=== PATIENT | male | born 1995 | race Caucasian/White ===

== ENCOUNTER 2018-01-07 03:38 | Emergency (ER) | payer OTHER ==
[2018-01-07] MEDS ORDERED: KETOROLAC TROMETHAMINE 60 MG/2 ML SDV IM ONE (04:58)
[2018-01-07 05:16] LABS: APPEARANCE,URINE CLEAR; BILIRUBIN,URINE NEGATIVE (NEGATIVE); COLOR,URINE COLORLESS; GLUCOSE, URINE NEGATIVE (NEGATIVE); KETONES,URINE NEGATIVE (NEGATIVE); LEUKOCYTE ESTERASE,URINE NEGATIVE (NEGATIVE); NITRITE,URINE NEGATIVE (NEGATIVE); PROTEIN,URINE NEGATIVE (NEGATIVE); URINE SPECIFIC GRAVITY 1.003; UROBILINOGEN,URINE NEGATIVE mg/dL (<2.0)
[2018-01-07] MEDS ORDERED: METHOCARBAMOL 750 MG TABLET PO ONE (06:15)
--- NOTE | 2018-01-07 06:16 | ER Document Report ---
ED General - General Chief Complaint: Possible Kidney Stone Stated Complaint: FLANK PAIN Time Seen by Provider: 01/07/18 04:07 Mode of Arrival: Ambulatory Information source: Patient Notes: Patient is a 22-year-old male [employer] who presents with chief complaint of left flank pain. Patient reports this pain has been going on for approximately 2 months. Also reports some mild dysuria over the last few days. Patient denies any fever, nausea, vomiting or diarrhea. Patient does report that he feels as though he has not been keeping hydrated lately. Patient reports that he does have a history of a previous back injury that affected the left side of his back. Patient reports it feels like this is "acting up" but states he does not recall reinjuring it. Patient reports he is tried taking ibuprofen with minimal relief. Last dose was at 9:30 PM. Patient admits to having a few beers prior to arrival tonight. Patient denies any past medical history, surgical history and does not take any daily medications. TRAVEL OUTSIDE OF THE [place] IN LAST 30 DAYS: No - Related Data Allergies/Adverse Reactions: No Known Allergies Allergy (Verified 01/07/18 03:40) Past Medical History - Social History Smoking Status: Current Every Day Smoker Family History: Reviewed & Not Pertinent Patient has suicidal ideation: No Patient has homicidal ideation: No - Medical History Medical History: Negative Renal/ Medical History: Denies: Hx Peritoneal Dialysis Past Surgical History: Reports: Hx Oral Surgery - Immunizations Immunizations up to date: Yes Hx Diphtheria, Pertussis, Tetanus Vaccination: Yes Review of Systems - Review of Systems Genitourinary: Dysuria Musculoskeletal: Back pain -: Yes All other systems reviewed and negative Physical Exam - Vital signs Vitals: Temp Pulse Resp BP Pulse Ox 97.7 F 99 18 150/91 H 97 01/07/18 03:43 01/07/18 03:43 01/07/18 03:43 01/07/18 03:43 01/07/18 03:43 - Notes Notes: PHYSICAL EXAMINATION: GENERAL: Well-appearing, well-nourished and in no acute distress. HEAD: Atraumatic, normocephalic. EYES: Pupils equal round and reactive to light, extraocular movements intact, sclera anicteric, conjunctiva are normal. ENT: Nares patent, oropharynx clear without exudates. Moist mucous membranes. NECK: Normal range of motion, supple without lymphadenopathy LUNGS: Breath sounds clear to auscultation bilaterally and equal. No wheezes rales or rhonchi. HEART: Regular rate and rhythm without murmurs ABDOMEN: Soft, nontender, nondistended abdomen. No guarding, no rebound. No masses appreciated. Musculoskeletal: Normal range of motion, no pitting or edema. No cyanosis. NEUROLOGICAL: Cranial nerves grossly intact. Normal speech, normal gait. Normal sensory, motor exams PSYCH: Normal mood, normal affect. SKIN: Warm, Dry, normal turgor, no rashes or lesions noted. Course - Re-evaluation Re-evalutation: Patient is an otherwise healthy 22-year-old male who appears well and is not toxic in appearance. Vital signs are within normal limits. Physical examination is consistent with musculoskeletal strain. Patient will be given IM Toradol. Urinalysis will be performed to rule out urinary tract infection as well as chlamydia and gonorrhea due to patient's complaint of mild dysuria. Discussed this with the patient who adamantly reports that he does not have any sexually transmitted infections. He declines prophylactic treatment. He would like me to call him if there are any abnormalities with his test. - Vital Signs Vital signs: Temp Pulse Resp BP Pulse Ox 97.7 F 99 18 150/91 H 97 01/07/18 03:43 01/07/18 03:43 01/07/18 03:43 01/07/18 03:43 01/07/18 03:43 Discharge - Discharge Clinical Impression: Low back strain Qualifiers: Encounter type: initial encounter Qualified Code(s): S39.012A - Strain of muscle, fascia and tendon of lower back, initial encounter Condition: Stable Disposition: HOME, SELF-CARE Additional Instructions: Muscle Strain You have strained a muscle -- torn the fibers within the muscle. This often occurs with strenuous exertion, or during an injury that suddenly stretches the muscle. The seriousness of a strain varies. Some strains heal within days, others cause problems for months. X-rays cannot show a muscle strain. X-rays are taken only if symptoms suggest that a fracture could be present. The usual treatment of a muscle strain is rest and ice packs. Sometimes, a sling, splint, or crutches may be necessary to rest the muscle. The muscle can be used again once pain subsides. Severe strains require a special exercise and stretching program to prevent permanent stiffness and disability. Your doctor will advise you if this will be necessary. Call the doctor immediately if pain or swelling becomes severe, or if numbness or discoloration develop. Muscle Relaxers Muscle relaxing medications are usually prescribed for acute muscle spasm or injury to the neck and back. They are often combined with antiinflammatory pain medication for increased relief. You may stop the muscle relaxer when the pain and stiffness have improved. Start the medication again if spasms recur. Muscle relaxers may cause drowsiness, especially with the first dose. Do not operate machinery or drive while under the effects of the medication. Most muscle relaxers last up to 24 hours. Do not combine the medication with alcohol. Your pain is likely due to a musculoskeletal strain. Please take ibuprofen 600 mg every 6 hours for the pain. Use the Robaxin as directed. Follow-up with your primary care provider in the next 2-3 days for follow-up. Return to the emergency department if you develop incontinence of your bowel or bladder or numbness and tingling in either of your extremities. Prescriptions: Methocarbamol [Robaxin 750 mg Tablet] 750 mg PO Q4 #40 tablet
[2018-01-07 06:43] LABS: CHLAM PCR NOT DETECTED (NOT DETECT); GON PCR NOT DETECTED (NOT DETECT)
[2018-01-07 07:04] VITALS: BP 118/61
== END 2018-01-07 07:04 | disposition home or self-care (01) ==
LOC: ER 03:38
DX: S39.012A Strain of muscle, fascia and tendon of lower back, initial encounter (principal); R10.9 Unspecified abdominal pain; R30.0 Dysuria; X58.XXXA Exposure to other specified factors, initial encounter; F17.200 Nicotine dependence, unspecified, uncomplicated
CPT/HCPCS: 99283; 96372; 81001; 87491; 87591; J1885; J3490